=== PATIENT | male | born 1970 | race Hispanic/Latino ===

== ENCOUNTER 2016-07-20 16:02 | Emergency (ER) | payer SELFPAY ==
[2016-07-20 16:25] VITALS: BP 107/68
--- NOTE | 2016-07-20 17:27 | Emergency Department Report ---
ED General Adult HPI - General Chief complaint: Skin Rash Stated complaint: LT LEG RASH/BLISTERS Time Seen by Provider: 07/20/16 16:44 Source: patient Mode of arrival: Ambulatory Limitations: No Limitations - History of Present Illness Initial comments: PT c/o painful leg rash x 5 days PT also c/o productive cough x 2 weeks. PT states he has had PNA multiple times and he has scar tissue in his lower lobe. PT states he has had PNA times times in the last 2 years. MD Complaint: rash/ cough -: Gradual, week(s) Location: chest, right, lower extremity Radiation: non-radiation Severity scale (0 -10): 5 Quality: burning Consistency: constant Associated Symptoms: cough. denies: chest pain, malaise, nausea/vomiting, shortness of breath Treatments Prior to Arrival: none - Related Data Allergies Allergy/AdvReac Type Severity Reaction Status Date / Time No Known Allergies Allergy Unverified 07/20/16 16:21 ED Review of Systems ROS: Stated complaint: LT LEG RASH/BLISTERS Other details as noted in HPI Comment: All other systems reviewed and negative Constitutional: chills. denies: fever ENT: denies: ear pain, throat pain, congestion Respiratory: cough (producing yellow sputum ) Cardiovascular: denies: chest pain Musculoskeletal: as per HPI Skin: as per HPI, rash ED Past Medical Hx - Past Medical History Previous Medical History?: No - Surgical History Past Surgical History?: No - Social History Smoking Status: Current Every Day Smoker Substance Use Type: Alcohol ED Physical Exam - General Limitations: No Limitations General appearance: alert, in no apparent distress - Head Head exam: Present: atraumatic, normocephalic, normal inspection - Eye Eye exam: Present: normal appearance, PERRL. Absent: scleral icterus, conjunctival injection - ENT ENT exam: Present: normal exam, normal orophraynx, normal external ear exam - Neck Neck exam: Present: normal inspection, full ROM. Absent: tenderness, meningismus, lymphadenopathy - Respiratory Respiratory exam: Present: normal lung sounds bilaterally. Absent: respiratory distress, wheezes, rhonchi, stridor, chest wall tenderness, accessory muscle use - Cardiovascular Cardiovascular Exam: Present: regular rate, normal rhythm, normal heart sounds - GI/Abdominal GI/Abdominal exam: Present: soft. Absent: tenderness - Extremities Exam Extremities exam: Present: full ROM, tenderness, other (R post thigh with painful, tender erythematous rash with localized vesicles). Absent: pedal edema , calf tenderness - Back Exam Back exam: Present: normal inspection. Absent: tenderness, CVA tenderness (R), CVA tenderness (L) - Neurological Exam Neurological exam: Present: alert, oriented X3, normal gait - Psychiatric Psychiatric exam: Present: normal affect, normal mood - Skin Skin exam: Present: warm, dry, rash, erythema, vesicles ED Course Vital Signs 07/20/16 16:22 Temperature 98.4 F Pulse Rate 62 Respiratory 18 Rate Blood Pressure 107/68 O2 Sat by Pulse 98 Oximetry - Reevaluation(s) Reevaluation #1: 07/20/16 18:49 PT aware of XR result. PT is a smoker, will treat his bronchitis as complicated. PT is not ready to quit, but smoking cessation recommended. PT is aware he is contagious. PT is aware he will need to follow up with PCP. PT aware no driving/working/ ETOH after narcotic pain medication. PT has no questions at this time. - Pulse Oximetry Interpretation Digit-Finger Initial Pulse Oximetry Readin Actions Taken: none ED Medical Decision Making - Radiology Data Radiology results: report reviewed, image reviewed CXR: NAP - Differential Diagnosis shingles, pna, bronchitis, uri Critical Care Time: No Critical care attestation.: If time is entered above; I have spent that time in minutes in the direct care of this critically ill patient, excluding procedure time. ED Disposition Clinical Impression: Shingles rash Qualifiers: Herpes zoster complications: without complications Qualified Code(s): B02.9 - Zoster without complications Acute bronchitis Qualifiers: Bronchitis organism: unspecified organism Qualified Code(s): J20.9 - Acute bronchitis, unspecified Disposition: DISCHARGED TO HOME OR SELFCARE Is pt being admited?: No Does the pt Need Aspirin: No Condition: Stable Instructions: Herpes Zoster (ED), Acute Bronchitis (ED) Additional Instructions: You are contagious. Avoid immunocompromised individuals No driving or ETOH after Tylenol #3 Referrals: PRIMARY CAREMD [Primary Care Provider] - 3-5 Days MICHAEL ROMEO MD [Staff Physician] - 3-5 Days [facility] [Outside] - 3-5 Days Forms: Work/School Release Form(ED) Time of Disposition: 18:56
--- NOTE | 2016-07-20 18:46 | XRay Report ---
FINAL REPORT EXAM: XR CHEST ROUTINE 2V HISTORY: pna 4 times, productive cough TECHNIQUE: 2 view examination of the chest PRIORS: None FINDINGS: There is no pulmonary consolidation, pleural effusion, or pneumothorax. Cardiac silhouette size is normal without vascular congestion. The regional skeleton is without acute pathology. IMPRESSION: No evidence of acute cardiopulmonary disease
== END 2016-07-20 19:06 | disposition home or self-care (01) ==
LOC: ED 16:02
DX: J20.9 Acute bronchitis, unspecified (principal); B02.9 Zoster without complications; F17.200 Nicotine dependence, unspecified, uncomplicated
CPT/HCPCS: 71020; 99283